=== PATIENT | female | born 1935 | race Caucasian/White ===

== ENCOUNTER 2020-05-28 09:41 | Emergency (ER) | payer MEDICARE ==
[2020-05-28 10:00] VITALS: BMI 30.5
[2020-05-28] MEDS ORDERED: BAMLANIVIMAB 700 MG in SODIUM CHLORIDE 250 ML IVPB ONE (10:47)
[2020-05-28 12:47] LABS: HEMATOCRIT 33.5 % (32.4-45.2); HEMOGLOBIN 11.3 GM/dL (10.7-15.3); MCH 27.9 pg (25.7-33.7); MCHC 33.8 g/dl (32.0-36.0); MEAN CELL VOLUME 82.5 fl (80-96); MEAN PLT VOLUME 7.3 fl (7.5-11.1); PLATELET COUNT 389 K/MM3 (134-434); RBC 4.06 M/mm3 (3.60-5.2); RDW 12.9 % (11.6-15.6); WHITE BLOOD COUNT 5.3 K/mm3 (4.0-10.0)
[2020-05-28 13:21] LABS: POTASSIUM 4.7 mmol/L (3.5-5.1)
[2020-05-28 13:27] LABS: BLOOD UREA NITROGEN 28.8 mg/dL (7-18); CALCIUM 9.1 mg/dL (8.5-10.1)
[2020-05-28 13:28] VITALS: BP 129/60; PULSE 92; TEMP 98.4
[2020-05-28 13:30] LABS: CREATININE 1.1 mg/dL (0.55-1.3)
== END 2020-05-28 14:10 | disposition home or self-care (01) ==
LOC: JCOVINFU 09:41 → JER 09:41 → JCOVINFU 14:10
DX: U07.1 COVID-19 (principal)
CPT/HCPCS: 36415; 80048; 85027; 99284-25; M0239; Q0239